=== PATIENT | female | born 1980 | race Caucasian/White ===

== ENCOUNTER 2017-04-24 08:53 | Day surgery (SDC) | payer OTHER ==
[~2017-04-24 08:53] MED LIST: Lactated Ringers 1,000 ML IV SCH; Sodium Chloride 0.9% 10 ML Syringe FLUSH PRN; Sodium Chloride 0.9% 2.5 ML Syringe FLUSH PRN
[2017-04-24] MEDS ORDERED: fentaNYL 100 MCG/2 ML SDV ONE (08:55)
[2017-04-24] MEDS ORDERED: Propofol 200 MG/20 ML SDV ONE ×2 (08:55→11:05)
[2017-04-24] MEDS ORDERED: Lidocaine 2% 5 ML SDV ONE (08:56)
--- NOTE | 2017-04-24 09:35 | PCM.PREANE ---
Preanesthetic Assessment - Anesthesia/Transfusion/Family Hx Anesthesia History: Prior Anesthesia Without Reaction Family History of Anesthesia Reaction: No Transfusion History: No Prior Transfusion(s) - Review of Systems General: No Symptoms Pulmonary: No Symptoms Cardiovascular: No Symptoms Neurological: No Symptoms Other: Reports: None - Physical Assessment NPO Status Date: 04/23/17 O2 Sat by Pulse Oximetry: 96 Respiratory Rate: 16 Vital Signs: Last Vital Signs Temp 37.0 C 04/24/17 09:17 Pulse 91 04/24/17 09:17 Resp 16 04/24/17 09:17 BP 128/88 04/24/17 09:17 Pulse Ox 96 04/24/17 09:17 Height: 1.68 m Weight: 81.193 kg ASA Class: 2 Mental Status: Alert & Oriented x3 Dentition: Reports: Normal Dentition ROM/Head Extension: Full Lungs: Clear to Auscultation, Normal Respiratory Effort Cardiovascular: Regular Rate, Regular Rhythm - Lab Values: Laboratory Last Values Urine HCG, Qual NEGATIVE (NEGATIVE) 04/24/17 08:55 - Allergies Allergies/Adverse Reactions: Allergies Allergy/AdvReac Type Severity Reaction Status Date / Time Estrogens Allergy Headache Verified 04/19/17 08:06 [id number] Antimigraine Allergy Shortness Verified 04/19/17 08:06 Agents of Breath - Anesthesia Plan Pre-Op Medication Ordered: None - Acknowledgements Anesthesia Type Planned: MAC Pt an Appropriate Candidate for the Planned Anesthesia: Yes Alternatives and Risks of Anesthesia Discussed w Pt/Guardian: Yes Pt/Guardian Understands and Agrees with Anesthesia Plan: Yes PreAnesthesia Questionnaire HEENT History: Reports: Other (See Below) Other HEENT History: glasses/contacts Gastrointestinal History: Reports: GERD Genitourinary History: Reports: None GLOBE CLEANER History: Reports: Musculoskeletal History: Reports: Fracture Other Musculoskeletal History: hx fx ribs, wrists, and elbow Neurological History: Reports: Concussion, TIA Other Neuro History: states had TIA while on estrogen patch in 2003 Endocrine/Metabolic History: Reports: Other (See Below) Other Endocrine/Metabolic History: hypoglycemic Hematologic History: Reports: Other (See Below) Other Hematologic History: thrombocytopenia only during - Past Surgical History Head Surgeries/Procedures: Reports: None Female Surgical History: Reports: Section Musculoskeletal Surgical History: Reports: Other (See Below) Other Musculoskeletal Surgeries/Procedures:: surgery for fx elbow - SUBSTANCE USE Smoking Status *Q: Never Smoker Recreational Drug Use History: No - HOME MEDS Home Medications: Home Meds Famotidine 20 mg PO BID 04/19/17 [History] - CURRENT (IN HOUSE) MEDS Current Meds: Current Medications Lactated Ringer's (Ringers, Lactated) 1,000 mls @ 125 mls/hr IV ASDIRECTED MARINE Last Admin: 04/24/17 09:19 Dose: 125 mls/hr Sodium Chloride (Saline Flush) 10 ml FLUSH ASDIRECTED PRN PRN Reason: Keep Vein Open Sodium Chloride (Saline Flush) 2.5 ml FLUSH ASDIRECTED PRN PRN Reason: Keep Vein Open Sodium Chloride (Saline Flush) 10 ml FLUSH ASDIRECTED PRN PRN Reason: Keep Vein Open Sodium Chloride (Saline Flush) 2.5 ml FLUSH ASDIRECTED PRN PRN Reason: Keep Vein Open Discontinued Medications Fentanyl (Sublimaze) Confirm Administered Dose 100 mcg .ROUTE .STK-MED ONE Stop: 04/24/17 08:56 Lidocaine (Xylocaine-Mpf 2%) Confirm Administered Dose 5 ml .ROUTE .STK-MED ONE Stop: 04/24/17 08:57 Propofol (Diprivan 20 Ml) Confirm Administered Dose 200 mg .ROUTE .STK-MED ONE Stop: 04/24/17 08:56
--- NOTE | 2017-04-24 11:24 | PCM.OPNOTE ---
- General Post-Op/Procedure Note Date of Surgery/Procedure: 04/24/17 Operative Procedure(s): EGD with biopsy Findings: Hiatal hernia with associated esophagitis Pre Op Diagnosis: Reflux Post-Op Diagnosis: Hiatal hernia, esophagitis Anesthesia Technique: MAC Condition: Good
--- NOTE | 2017-04-24 11:42 | PCM.POSTAN ---
POST ANESTHESIA ASSESSMENT - MENTAL STATUS Mental Status: Alert, Oriented - RESPIRATORY Respiratory Status: Respiratory Rate WNL, Airway Patent, O2 Saturation Stable - CARDIOVASCULAR CV Status: Pulse Rate WNL, Blood Pressure Stable - GASTROINTESTINAL GI Status: No Symptoms - POST OP HYDRATION Hydration Status: Adequate & Stable
--- NOTE | 2017-04-24 11:42 | PCM48HPAN ---
Post Anesthesia Note - EVALUATION WITHIN 48HRS OF ANESTHETIC Vital Signs in Normal Range: Yes Patient Participated in Evaluation: Yes Respiratory Function Stable: Yes Airway Patent: Yes Cardiovascular Function Stable: Yes Hydration Status Stable: Yes Pain Control Satisfactory: Yes Nausea and Vomiting Control Satisfactory: Yes Mental Status Recovered: Yes
--- NOTE | 2017-04-24 16:53 | OR ---
SURGEON: AMELIA NORRIS MD DATE OF PROCEDURE: 04/24/2017 PREOPERATIVE DIAGNOSIS: Reflux. POSTOPERATIVE DIAGNOSES: 1. Hiatal hernia. 2. Esophagitis. PROCEDURE PERFORMED: Diagnostic EGD with biopsy. ANESTHESIA: MAC. INSTRUMENT USED: Olympus endoscope. EXTENT OF EXAM: To the second portion of the duodenum. PREPARATION: Good. LIMITATIONS: None. INDICATIONS: The patient is a 36-year-old female who recently presented with severe reflux symptoms. She was started on famotidine b.i.d. which did help her symptoms, but she continues to have breakthrough. The decision was made to perform a diagnostic EGD. We discussed the procedure, expected perioperative course, and risks including bleeding, or perforation. The patient verbalized understanding and wishes to proceed. PROCEDURE IN DETAIL: The patient was brought into the endoscopy suite and placed in a beach chair position. A time-out was completed verifying the patient's name, age, date of , allergies, and procedure to be performed. A bite block was placed in the patient's mouth, and monitored anesthesia care was induced. Continuous oxygen was provided via nasal cannula throughout the procedure. After adequate sedation was achieved, a well-lubricated endoscope was placed in the patient's mouth and advanced under direct visualization to the level of the second portion of the duodenum. A photograph was taken and this appeared normal. The scope was then fully withdrawn while examining the color, texture, anatomy, and integrity of the upper GI tract. Upon bringing the camera into the stomach, the patient started to have laryngospasm. The scope was then removed from the patient, and the patient allowed to recover. Once her heart rate had come down and her sats had returned back to the high 90s, I placed the scope back in the patient's mouth and advanced it under direct visualization to the level of the stomach. Upon reaching the stomach, I retroflexed the scope and noted a hiatal hernia. Biopsies were taken of the gastric body and antrum and fundus and sent for H. pylori testing. A photograph was also taken of the pylorus. The scope was then brought into the distal esophagus, and a photograph taken of the hiatal hernia sac. The sac itself appeared normal. However, above the level of the GE junction, there appeared to be superficial ulcerations consistent with esophagitis. Two biopsies were taken in this area. The remainder of the esophagus appeared normal. The scope was then removed from the patient and the procedure was terminated. The patient was taken to the PACU in stable condition. TANYA CALDWELL /[id number]
== END 2017-04-24 12:00 | disposition home or self-care (01) ==
LOC: MW.SDS 08:53
PROVIDERS: ATTEND Surgery
DX: K20.9 Esophagitis, unspecified (principal); K44.9 Diaphragmatic hernia without obstruction or gangrene; K21.9 Gastro-esophageal reflux disease without esophagitis; Z88.8 Allergy status to other drugs, medicaments and biological substances; Z79.899 Other long term (current) drug therapy
CPT/HCPCS: 43239; 81025; 88305; 88312; J3010; J7120; 00740; J2704